=== PATIENT | female | born 1965 | race Caucasian/White ===

== ENCOUNTER 2020-10-30 17:27 | Outpatient (CLI) | payer OTHER, SELFPAY ==
--- NOTE | ~2020-10-30 | MM_ITS ---
EXAMINATION: MM screening cedric BI w megan HISTORY: Screening mammogram TECHNIQUE: Craniocaudal and mediolateral oblique 3-D tomosynthesis images were obtained and synthetic 2-D images were generated. CAD analysis was submitted and interpreted. COMPARISON: 04/10/2019, 02/07/2018, 12/30/2016 bilateral digital screening mammogram examinations BREAST PARENCHYMAL COMPOSITION: There are scattered areas of fibroglandular density. FINDINGS: Stable mild fibroglandular asymmetry. There is no evidence of suspicious mass, calcificatio n, or architectural distortion to suggest malignancy in either breast. There has been no suspicious i nterval change. IMPRESSION: 1. No mammographic evidence of malignancy. 2. Recommend routine screening mammography in one year. BI-RADS Category 2: Benign finding(s). Reviewed, dictated and finalized at location A. 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
== END 2020-10-30 17:28 | disposition home or self-care (01) ==
LOC: ANHIMG 17:29
PROVIDERS: PCP Family Medicine; Visit Provider Obstetrics & Gynecology
DX: Z12.31 Encounter for screening mammogram for malignant neoplasm of breast (principal)
CPT/HCPCS: 77063; 77067

== ENCOUNTER → 2021-06-04 05:43 | Outpatient (CLI) | payer OTHER, SELFPAY ==
[2021-06-04 19:18] LABS: SARS-CoV-2 RNA PCR Negative
== END ==
PROVIDERS: PCP Family Medicine; Visit Provider Family Medicine
DX: J02.9 Acute pharyngitis, unspecified (principal); J34.89 Other specified disorders of nose and nasal sinuses; R07.89 Other chest pain; R11.0 Nausea; R19.7 Diarrhea, unspecified; R51.9 Headache, unspecified; R53.83 Other fatigue; Z20.822 Contact with and (suspected) exposure to COVID-19
CPT/HCPCS: C9803; U0003; U0005

== ENCOUNTER 2021-12-02 08:02 | Outpatient (CLI) | payer OTHER, SELFPAY ==
--- NOTE | ~2021-12-02 | MM_ITS ---
EXAMINATION: MM screening contra [facility] BI w megan HISTORY: Screening mammogram TECHNIQUE: Craniocaudal and mediolateral oblique 3-D tomosynthesis images were obtained and synthetic 2-D images were generated. CAD analysis was submitted and interpreted. COMPARISON: Prior mammograms dating back to 12/30/2014 BREAST PARENCHYMAL COMPOSITION: There are scattered areas of fibroglandular density. FINDINGS: There is no evidence of suspicious mass, calcification, or architectural distortion to sugg est malignancy in either breast. There has been no suspicious interval change. IMPRESSION: 1. No mammographic evidence of malignancy. 2. Recommend routine screening mammography in one year. BI-RADS Category 2: Benign finding(s). Reviewed, dictated and finalized at location A. 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
== END 2021-12-02 08:03 | disposition home or self-care (01) ==
LOC: ANHIMG 08:03
PROVIDERS: PCP Family Medicine; Visit Provider Obstetrics & Gynecology
DX: Z12.31 Encounter for screening mammogram for malignant neoplasm of breast (principal)
CPT/HCPCS: 77063; 77067

== ENCOUNTER → 2022-07-30 17:24 | Outpatient (CLI) | payer OTHER, SELFPAY ==
--- NOTE | ~2022-07-30 | XR_ITS ---
EXAMINATION: XR_[id number]_CR DATE: 07/30/2022 17:42 INDICATION: Neck pain. TECHNIQUE: 4 views of cervical spine including standing views were obtained. COMPARISON: None. FINDINGS: There is 2 mm retrolisthesis of C5 on C6. Vertebral body heights are normal. There is moder ately decreased disc height at C5-C6. At C5-C6, there is severe bilateral uncovertebral joint osteoar thritis. There is multilevel mild facet joint osteoarthritis. There is mild central canal stenosis at C5-C6. No prevertebral soft tissue swelling. IMPRESSION: 1. Moderate spondylosis at C5-C6 and mild spondylosis at other levels. Reviewed, dictated and finalized at location A.
== END ==
PROVIDERS: PCP Chiropractor; Visit Provider Chiropractor
DX: M47.892 Other spondylosis, cervical region (principal)
CPT/HCPCS: 72040

== ENCOUNTER 2023-02-23 08:20 | Outpatient (CLI) | payer OTHER, SELFPAY ==
--- NOTE | ~2023-02-23 | MM_ITS ---
EXAMINATION: MM screening [facility] BI w megan HISTORY: Screening mammogram TECHNIQUE: Craniocaudal and mediolateral oblique 3-D tomosynthesis images were obtained and synthetic 2-D images were generated. CAD analysis was submitted and interpreted. COMPARISON: 12/02/2021, 10/30/2020, 04/20/2019 BREAST PARENCHYMAL COMPOSITION: There are scattered areas of fibroglandular density. FINDINGS: No suspicious mass, calcification, or architectural distortion are identified in either sunil ast to suggest malignancy. There has been no suspicious interval change. IMPRESSION: 1. No mammographic evidence of malignancy. 2. Recommend routine screening mammography in one year. BI-RADS Category 1: Negative Reviewed, dictated and finalized at location A.
== END 2023-02-23 08:21 | disposition home or self-care (01) ==
LOC: ANHIMG 08:23
PROVIDERS: PCP Emergency Medicine; Visit Provider Obstetrics & Gynecology
DX: Z12.31 Encounter for screening mammogram for malignant neoplasm of breast (principal)
CPT/HCPCS: 77063; 77067

== ENCOUNTER 2023-08-18 03:05 | Day surgery (SDC) | payer BC, SELFPAY ==
[2023-08-08 14:36] VITALS: BMI 31.0
--- NOTE | 2023-08-16 10:51 | SUR.PREOP ---
Patient called regarding upcoming procedure. Reviewed preop instructions, appointment times, and procedure prep.
--- NOTE | 2023-08-17 16:44 | PM.HPGS ---
History of Present Illness History of Present Illness Consent: Risks, benefits, and alternatives have been discussed and questions answered. Patient agrees to proceed with procedure. Chief complaint: Hx of colon polyps Narrative: Carmelita Grimm is a 58 year old female referred for colon cancer screening. She has history of polyps. Review of Systems Review of Systems: All systems reviewed & are unremarkable except as noted in HPI and below PMFSH Past Medical History Medical History BMI 33.0-33.9,adult Depression Diabetes Eczema High cholesterol Restless leg syndrome Screening mammogram, encounter for Trigger finger, right middle finger Surgical History Surgical History H/O section H/O tubal ligation History of hysterectomy, supracervical (03/15/03) History of lobectomy of lung R lower lobectomy due to collapsed lung - date unknown Hx of cholecystectomy Family History Family History Father Family history of obesity Family history of migraine headaches Hypertension Cerebrovascular accident, Onset Age: 74 Family history of diabetes mellitus in first degree relative Family history of congestive heart failure Diabetes mellitus, Onset Age: 76 Family history of cardiovascular disease, Onset Age: 76 Family history of coronary artery disease, Onset Age: 76 Mother Depression Family history of osteoarthritis Patient's mother is in good health Family history of diabetes mellitus in first degree relative Family history of irritable bowel syndrome Diabetes mellitus Family history of lymphoma Sibling Patient's sister is in good health Patient's brother is in good health Other Asthma Family history of attention deficit hyperactivity disorder (ADHD) Social History Social History Smoking status: Never smoker Second hand tobacco smoke exposure: No Alcohol intake: never Substance use: current Substance use type: does not use Last use: Gummies 3 times within last month. 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 Gender identity (if verbalized by the patient): Female Sexual Orientation (if Verbalized by the Patient): Straight or Heterosexual Meds Home Medications and Allergies Home Medications Medication Instructions Recorded Confirmed Type albuterol sulfate 90 mcg/actuation 2 puff inhalation Q4H PRN 04/25/20 08/18/23 Rx aerosol inhaler (ProAir HFA) shortness of breath or wheezing #8.5 grams estradiol 10 mcg vaginal tablet 10 mcg vaginal 2XW 90 days #26 tabs 01/11/23 08/18/23 Rx bupropion HCl 150 mg 24 hr tablet, 150 mg PO QAM 05/10/23 08/18/23 History extended release (Wellbutrin XL) duloxetine 30 mg capsule,delayed 30 mg PO DAILY 05/10/23 08/18/23 History release atorvastatin 20 mg tablet 20 mg PO DAILY #90 tabs 06/07/23 08/18/23 Rx omeprazole 20 mg capsule,delayed See Rx Instructions .Route 06/07/23 08/18/23 Rx release .COMPLEX #90 caps clotrimazole-betamethasone 1 1 applic topical BID PRN Rash 08/08/23 08/18/23 History %-0.05 % topical cream metformin 500 mg tablet,extended 500 mg PO DAILY #90 tabs 08/12/23 08/18/23 Rx release 24 hr Allergies Allergy/AdvReac Type Severity Reaction Status Date / Time codeine Allergy Severe hives Verified 08/18/23 06:17 Penicillins Allergy Severe
[2023-08-18 06:10] VITALS: BP 147/80; PULSE 74; RESP 16; TEMP 36.4; O2SAT 98; BMI 32.6
[2023-08-18] MEDS: LACTATED RINGERS 1,000 ML 150 ML IV CONT (06:31)
[2023-08-18 06:38] LABS: Glucose Point of Care 126 mg/dl (65-105)
--- NOTE | 2023-08-18 07:13 | WPDANESEPPF ---
Anes - Initial Pre Proc Eval Procedure: Operation Date: 08/18/23 07:30 Proposed Procedures p Screening Colonoscopy - Praneeth Delgado MD Date/Time: 08/18/23 07:13 Surgeon: Praneeth Delgado MD Pre Op Diagnosis: Hx of colon polyps Patient Data Age: 58 Gender: F Height: 1.6 m Weight: 83.6 kg Last Vital Signs Temp 97.5 F L 08/18/23 06:10 Pulse 74 08/18/23 06:10 Resp 16 08/18/23 06:10 BP 147/80 H 08/18/23 06:10 Pulse Ox 98 08/18/23 06:10 O2 Del Method Room Air 08/18/23 06:10 Allergies Allergy/AdvReac Type Severity Reaction Status Date / Time codeine Allergy Severe hives Verified 08/18/23 06:17 Penicillins Allergy Severe hives Verified 08/18/23 06:17 Sulfa (Sulfonamide Allergy Severe HIVES FROM Verified 08/18/23 06:17 Antibiotics) PRESERVATIVE sulfamethoxazole Allergy Severe HIVES FROM Verified 08/18/23 06:17 PRESERVATIVE trimethoprim Allergy Severe HIVES FROM Verified 08/18/23 06:17 PRESERVATIVE Benzoate Analogues Allergy Unknown POTASSIUM Verified 08/18/23 06:17 OR SODIUM BENZOATE Cephalosporins Allergy Unknown CECLOR, Verified 08/18/23 06:17 CEPHALEXIN-HIVES FROM PRESERVATIVE rofecoxib Allergy Unknown HIVES FROM Verified 08/18/23 06:17 PRESERVATIVE sodium benzoate Allergy Unknown IN Verified 08/18/23 06:17 SUSPENSION/LIQUIDS-HIVES FROM PRESERVATIVE SALICYLATES Allergy Unknown HIVES FROM Uncoded 08/18/23 06:17 PRESERVATIVE DIET WHITE SODA AdvReac Unknown Unknown Uncoded 08/18/23 06:17 Home Medications Medication Instructions Recorded Confirmed Type albuterol sulfate 90 mcg/actuation 2 puff inhalation Q4H PRN 04/25/20 08/18/23 Rx aerosol inhaler (ProAir HFA) shortness of breath or wheezing #8.5 grams estradiol 10 mcg vaginal tablet 10 mcg vaginal 2XW 90 days #26 tabs 01/11/23 08/18/23 Rx bupropion HCl 150 mg 24 hr tablet, 150 mg PO QAM 05/10/23 08/18/23 History extended release (Wellbutrin XL) duloxetine 30 mg capsule,delayed 30 mg PO DAILY 05/10/23 08/18/23 History release atorvastatin 20 mg tablet 20 mg PO DAILY #90 tabs 06/07/23 08/18/23 Rx omeprazole 20 mg capsule,delayed See Rx Instructions .Route 06/07/23 08/18/23 Rx release .COMPLEX #90 caps clotrimazole-betamethasone 1 1 applic topical BID PRN Rash 08/08/23 08/18/23 History %-0.05 % topical cream metformin 500 mg tablet,extended 500 mg PO DAILY #90 tabs 08/12/23 08/18/23 Rx release 24 hr Laboratory Tests 08/18/23 06:34 POC Capillary Glucose 126 H mg/dl (65-105) Patient hx anesthesia problems: none Family hx anesthesia problems: none Results Review: All pre-operative results and documents have been reviewed as part of the pre-operative evaluation. [facility] Past Medical History Medical History BMI 33.0-33.9,adult Depression Diabetes Eczema High cholesterol Restless leg syndrome Screening mammogram, encounter for Trigger finger, right middle finger Surgical History Surgical History H/O section H/O tubal ligation History of hysterectomy, supracervical (03/15/03) History of lobectomy of lung R lower lobectomy due to collapsed lung - date unknown Hx of cholecystectomy Family History Family History Father Family history of obesity Family history of migraine headaches Hypertension Cerebrovascular accident, Onset Age: 74 Family history of diabetes mellitus in first degree relative Family history of congestive heart failure Diabetes mellitus, Onset Age: 76 Family history of cardiovascular disease, Onset Age: 76 Family history of coronary artery disease, Onset Age: 76 Mother Depression Family history of osteoarthritis Patient's mother is in good health Family history of diabetes mellitus in first degree rela
[2023-08-18 07:40] VITALS: BP 102/64; PULSE 67; RESP 22; O2SAT 97
[2023-08-18 07:50] VITALS: BP 114/73; PULSE 66; RESP 20; O2SAT 99
[2023-08-18 08:00] VITALS: BP 123/81; PULSE 74; RESP 20; O2SAT 99
== END 2023-08-18 08:07 | disposition home or self-care (01) ==
PROVIDERS: PCP Emergency Medicine; Visit Provider Internal Medicine Gastroenterology
PROC: 0DJD8ZZ Inspection of Lower Intestinal Tract, Via Natural or Artificial Opening Endoscopic (ICD-10-PCS; CPT 45378; principal; 2023-08-18 07:30)
DX: Z12.11 Encounter for screening for malignant neoplasm of colon (principal); F32.A Depression, unspecified; E11.9 Type 2 diabetes mellitus without complications; E78.00 Pure hypercholesterolemia, unspecified; G25.81 Restless legs syndrome; Z90.49 Acquired absence of other specified parts of digestive tract; Z90.2 Acquired absence of lung [part of]; Z79.51 Long term (current) use of inhaled steroids; Z79.84 Long term (current) use of oral hypoglycemic drugs; Z86.010 Personal history of colon polyps; Z82.49 Family history of ischemic heart disease and other diseases of the circulatory system; E66.9 Obesity, unspecified; Z68.32 Body mass index [BMI] 32.0-32.9, adult
CPT/HCPCS: G0105; 82948; J2704; J7120

== ENCOUNTER → 2023-09-21 08:11 | Outpatient (CLI) | payer BC, SELFPAY ==
--- NOTE | ~2023-09-21 | MMUS_ITS ---
EXAMINATION: MM diagnostic cedric LT w megan, US breast LT limited HISTORY: Upper inner quadrant left breast lump and ridge along the upper inner and outer quadrants TECHNIQUE: ML, MLO and CC 3-D tomosynthesis images of the left breast were performed and synthetic 2- D images were generated. CAD analysis was submitted and interpreted. High resolution targeted left br east ultrasound examination. If clinical complaint was performed. COMPARISON: 02/19/2023, 12/02/2021, 10/30/2020 bilateral screening mammogram examinations BREAST PARENCHYMAL COMPOSITION: There are scattered areas of fibroglandular density. FINDINGS: MAMMOGRAPHIC FINDINGS: No suspicious mass, architectural distortion, malignant calcification, skin thickening or retraction or significant new or developing density of the left breast is detected. Endotracheal, a skin marker placed over the area of reported lump in the upper inner quadrant of the left breast shows predominantly underlying adipose tissue. ULTRASOUND: 10:00 10 cm from nipple: No suspicious mass or shadowing, cyst or other significant abnormality is no ashley at the area of clinical complaint Superior left breast, 12:00 area: No suspicious mass or shadowing or cyst or other significant sonogr aphic abnormality is detected along the area where the patient complains of a ridge. IMPRESSION: 1. No mammographic evidence of malignancy 2. Routine annual mammographic screening is recommended BI-RADS Category 1: Negative Reviewed, dictated and finalized at location A. FILER IMPRESSION: 1. No mammographic evidence of malignancy 2. Routine annual mammographic screening is recommended BI-RADS Category 1: Negative
== END ==
PROVIDERS: PCP Obstetrics & Gynecology; Visit Provider Emergency Medicine
DX: N63.20 Unspecified lump in the left breast, unspecified quadrant (principal)
CPT/HCPCS: 76642; 77061; 77065; G0279

== ENCOUNTER 2023-09-30 03:58 | Day surgery (SDC) | payer BC, SELFPAY ==
[2023-09-08 14:18] VITALS: BMI 31.0
--- NOTE | 2023-09-28 09:30 | SUR.PREOP ---
Patient called regarding upcoming procedure. Message left on patient's voicemail regarding appointment times.
--- NOTE | 2023-09-29 18:06 | PM.HPGS ---
History of Present Illness History of Present Illness Consent: Risks, benefits, and alternatives have been discussed and questions answered. Patient agrees to proceed with procedure. Chief complaint: Malagon's Esophagus without dysplasia Narrative: Carmelita Girmm is a 58 year old female With a history of Malagon's esophagus. Review of Systems Review of Systems: All systems reviewed & are unremarkable except as noted in HPI and below PMFSH Past Medical History Medical History BMI 33.0-33.9,adult Depression Diabetes Eczema High cholesterol Restless leg syndrome Screening mammogram, encounter for Trigger finger, right middle finger Surgical History Surgical History H/O section H/O tubal ligation History of hysterectomy, supracervical (03/15/03) History of lobectomy of lung R lower lobectomy due to collapsed lung - date unknown Hx of cholecystectomy Family History Family History Father Family history of obesity Family history of migraine headaches Hypertension Cerebrovascular accident, Onset Age: 74 Family history of diabetes mellitus in first degree relative Family history of congestive heart failure Diabetes mellitus, Onset Age: 76 Family history of cardiovascular disease, Onset Age: 76 Family history of coronary artery disease, Onset Age: 76 Mother Depression Family history of osteoarthritis Patient's mother is in good health Family history of diabetes mellitus in first degree relative Family history of irritable bowel syndrome Diabetes mellitus Family history of lymphoma Sibling Patient's sister is in good health Patient's brother is in good health Other Asthma Family history of attention deficit hyperactivity disorder (ADHD) Social History Social History Smoking status: Never smoker Second hand tobacco smoke exposure: No Alcohol intake: never Substance use: current Substance use type: does not use Last use: Gummies 3 times within last month. 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 Gender identity (if verbalized by the patient): Female Sexual Orientation (if Verbalized by the Patient): Straight or Heterosexual Meds Home Medications and Allergies Home Medications Medication Instructions Recorded Confirmed Type albuterol sulfate 90 mcg/actuation 2 puff inhalation Q4H PRN 04/25/20 09/08/23 Rx aerosol inhaler (ProAir HFA) shortness of breath or wheezing #8.5 grams bupropion HCl 150 mg 24 hr tablet, 150 mg PO QAM 05/10/23 09/30/23 History extended release (Wellbutrin XL) duloxetine 30 mg capsule,delayed 30 mg PO DAILY 05/10/23 09/30/23 History release atorvastatin 20 mg tablet 20 mg PO DAILY #90 tabs 06/07/23 09/08/23 Rx omeprazole 20 mg capsule,delayed See Rx Instructions .Route 06/07/23 09/30/23 Rx release .COMPLEX #90 caps clotrimazole-betamethasone 1 1 applic topical BID PRN Rash 08/08/23 09/08/23 History %-0.05 % topical cream metformin 500 mg tablet,extended 500 mg PO DAILY #90 tabs 08/12/23 09/08/23 Rx release 24 hr estradiol 10 mcg vaginal tablet 10 mcg vaginal 2XW 90 days #26 tabs 09/28/23 Rx Allergies Allergy/AdvReac Type Severity Reaction Status Date / Time codeine Allergy Severe hives Verified 09/30/23 10:23 Penicillins Allergy Severe hives Verified
[2023-09-30 10:25] VITALS: BP 148/75; PULSE 90; RESP 20; TEMP 36.6; O2SAT 98
[2023-09-30] MEDS: LACTATED RINGERS 1,000 ML 150 ML IV CONT (10:38)
[2023-09-30 10:41] LABS: Glucose Point of Care 121 mg/dl (65-105)
--- NOTE | 2023-09-30 10:55 | WPDANESEPPF ---
Anes - Initial Pre Proc Eval Procedure: Operation Date: 09/30/23 11:30 Proposed Procedures p Esophagogastroduodenoscopy - Praneeth Delgado MD Date/Time: 09/30/23 10:55 Surgeon: Praneeth Delgado MD Pre Op Diagnosis: Malagon's Esophagus without dysplasia Patient Data Age: 58 Gender: F Height: 1.6 m Weight: 82 kg Last Vital Signs Temp 97.8 F 09/30/23 10:25 Pulse 90 09/30/23 10:25 Resp 20 09/30/23 10:25 BP 148/75 H 09/30/23 10:25 Pulse Ox 98 09/30/23 10:25 O2 Del Method Room Air 09/30/23 10:25 Allergies Allergy/AdvReac Type Severity Reaction Status Date / Time codeine Allergy Severe hives Verified 09/30/23 10:23 Penicillins Allergy Severe hives Verified 09/30/23 10:23 Sulfa (Sulfonamide Allergy Severe HIVES FROM Verified 09/30/23 10:23 Antibiotics) PRESERVATIVE sulfamethoxazole Allergy Severe HIVES FROM Verified 09/30/23 10:23 PRESERVATIVE trimethoprim Allergy Severe HIVES FROM Verified 09/30/23 10:23 PRESERVATIVE Benzoate Analogues Allergy Unknown POTASSIUM Verified 09/30/23 10:23 OR SODIUM BENZOATE Cephalosporins Allergy Unknown CECLOR, Verified 09/30/23 10:23 CEPHALEXIN-HIVES FROM PRESERVATIVE rofecoxib Allergy Unknown HIVES FROM Verified 09/30/23 10:23 PRESERVATIVE sodium benzoate Allergy Unknown IN Verified 09/30/23 10:23 SUSPENSION/LIQUIDS-HIVES FROM PRESERVATIVE SALICYLATES Allergy Unknown HIVES FROM Uncoded 09/30/23 10:23 PRESERVATIVE DIET WHITE SODA AdvReac Unknown Unknown Uncoded 09/30/23 10:23 Home Medications Medication Instructions Recorded Confirmed Type albuterol sulfate 90 mcg/actuation 2 puff inhalation Q4H PRN 04/25/20 09/08/23 Rx aerosol inhaler (ProAir HFA) shortness of breath or wheezing #8.5 grams bupropion HCl 150 mg 24 hr tablet, 150 mg PO QAM 05/10/23 09/30/23 History extended release (Wellbutrin XL) duloxetine 30 mg capsule,delayed 30 mg PO DAILY 05/10/23 09/30/23 History release atorvastatin 20 mg tablet 20 mg PO DAILY #90 tabs 06/07/23 09/08/23 Rx omeprazole 20 mg capsule,delayed See Rx Instructions .Route 06/07/23 09/30/23 Rx release .COMPLEX #90 caps clotrimazole-betamethasone 1 1 applic topical BID PRN Rash 08/08/23 09/08/23 History %-0.05 % topical cream metformin 500 mg tablet,extended 500 mg PO DAILY #90 tabs 08/12/23 09/08/23 Rx release 24 hr estradiol 10 mcg vaginal tablet 10 mcg vaginal 2XW 90 days #26 tabs 09/28/23 Rx Laboratory Tests 09/30/23 10:32 POC Capillary Glucose 121 H mg/dl (65-105) Patient hx anesthesia problems: post op nausea/vomiting Family hx anesthesia problems: none Results Review: All pre-operative results and documents have been reviewed as part of the pre-operative evaluation. [facility] Past Medical History Medical History BMI 33.0-33.9,adult Depression Diabetes Eczema High cholesterol Restless leg syndrome Screening mammogram, encounter for Trigger finger, right middle finger Surgical History Surgical History H/O section H/O tubal ligation History of hysterectomy, supracervical (03/15/03) History of lobectomy of lung R lower lobectomy due to collapsed lung - date unknown Hx of cholecystectomy Family History Family History Father Family history of obesity Family history of migraine headaches Hypertension Cerebrovascular accident, Onset Age: 74 Family history of diabetes mellitus in first degree relative Family history of congestive heart failure Diabetes mellitus, Onset Age: 76 Family history of cardiovascular disease, Onset Age: 76 Family history of coronary artery disease, Onset Age: 76 Mother Depression Family history of osteoarthritis Patient's mother is in good health Family history of diabetes pamelait
[2023-09-30 11:29] VITALS: BP 121/77; PULSE 67; RESP 23; O2SAT 96
[2023-09-30 11:39] VITALS: BP 123/78; PULSE 69; RESP 23; O2SAT 97
[2023-09-30 11:49] VITALS: BP 131/81; PULSE 69; RESP 24; O2SAT 97
== END 2023-09-30 11:50 | disposition home or self-care (01) ==
PROVIDERS: PCP Emergency Medicine; Visit Provider Internal Medicine Gastroenterology
PROC: 0DJ08ZZ Inspection of Upper Intestinal Tract, Via Natural or Artificial Opening Endoscopic (ICD-10-PCS; CPT 43235; principal; 2023-09-30 11:30)
DX: K22.70 Barrett's esophagus without dysplasia (principal); K21.00 Gastro-esophageal reflux disease with esophagitis, without bleeding; K44.9 Diaphragmatic hernia without obstruction or gangrene; F32.A Depression, unspecified; E11.9 Type 2 diabetes mellitus without complications; E78.00 Pure hypercholesterolemia, unspecified; G25.81 Restless legs syndrome; Z79.51 Long term (current) use of inhaled steroids; Z79.84 Long term (current) use of oral hypoglycemic drugs; Z90.49 Acquired absence of other specified parts of digestive tract; Z82.49 Family history of ischemic heart disease and other diseases of the circulatory system
CPT/HCPCS: 43239; 82948; 88305; J2704; J7120

== ENCOUNTER 2025-04-16 15:12 | Outpatient (CLI) | payer BC, SELFPAY ==
--- NOTE | ~2025-04-16 | MM_ITS ---
EXAMINATION: MM screening cedric BI w megan HISTORY: Screening TECHNIQUE: Craniocaudal and mediolateral oblique 3-D tomosynthesis images were obtained and synthetic 2-D images were generated. CAD analysis was submitted and interpreted. COMPARISON: Comparison to multiple prior studies sequentially, with oldest reviewed study dated 05/2018. BREAST PARENCHYMAL COMPOSITION: Not dense: There are scattered areas of fibroglandular density. FINDINGS: There is no evidence of suspicious mass, calcification, or architectural distortion to sugg est malignancy in either breast. There has been no suspicious interval change. IMPRESSION: 1. No mammographic evidence of malignancy. 2. Recommend routine screening mammography in one year. BI-RADS Category 1: Negative Reviewed, dictated and finalized at location B.
--- OUTSIDE RECORDS SUMMARY | 2025-04-16 15:35 | XMS_ITS | Clinical Summary ---
Author Organization [facility] Address [address] [place] [phone] Phone Care Team Providers Care City Route Driver Name Role Phone Luis A Bush MD Primary Care Provider Allergies Active Allergy Reactions Criticality Noted Date Comments Cefaclor Unknown 04/14/2012 Codeine Unknown 04/14/2012 Sodium Benzoate Unknown 04/14/2012 Soy Protein Hives High 04/18/2012 Sulfa (Sulfonamide Antibiotics) Unknown 04/02 Medications CLONAZEPAM (KLONOPIN ORAL) Take by mouth. Active VENLAFAXINE HCL (EFFEXOR ORAL) Take by mouth. Active FAMOTIDINE (PEPCID ORAL) Take by mouth. Active ESTROGENS, CONJUGATED/MEPRO BAM (ESTROGENS CONJ-MEPROBAMATE ORAL) Take by mouth. 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 Gender Identity Not on file Sexual Orientation Not on file Occupation Industry Job Start Date Job End Date Not on file Not on file Not on file Not on file Last Filed Vital Signs Vital Sign Reading Time Taken Comments Blood Pressure 100/73 04/18/2012 10:09 AM CDT Pulse 72 04/18/2012 10:09 AM CDT Temperature 36.8 C (98.2 F) 04/18/2012 9:42 AM CDT Respiratory Rate 18 04/18/2012 10:09 AM CDT Oxygen Saturation 100% 04/18/2012 10:09 AM CDT Inhaled Oxygen Concentration - - Weight 79.8 kg (176 lb) 04/18/2012 8:55 AM CDT Height 160 cm (5' 3) 04/18/2012 8:55 AM CDT Body Mass Index 31.18 04/18/2012 8:55 AM CDT Plan of Treatment Health Maintenance Due Date Last Done Comments DTAP/TDAP/TD VACCINES (1 - Tdap) 1982 HPV/Cotest (21-29) 1984 CERVICAL CANCER SCREENING 1993 HPV/Cotest (30-65) 1993 PAP SMEAR 1993 BREAST CANCER SCREENING 2003 FIT-DNA Q 3 years 2008 FIT/FOBT Q 1 year 2008 Flex Sig/CT Colonography Q 5 years 2008 ZOSTER VACCINE (1 of 2) 2013 COLORECTAL SCREENING 04/18/2022 04/18/2012, 04/18/20 12 Colorectal Cancer Screening 04/18/2022 INFLUENZA VACCINE (#1) 2025 RSV VACCINE (60+ or ) (1 - 1-dose 75+ series) 2038 Advance Directives For more information, please contact: [phone] * Full Code (Latest Code Status on File) Date Activated Date Inactivated Comments 04/18/2012 8:54 AM 04/18/2012 12:54 PM Care Teams City Route Driver Relationship Specialty Start Date End Date Luis A Bush MD [address] [place] [phone] PCP - General Family Practice 04/12/12
--- OUTSIDE RECORDS SUMMARY | 2025-04-16 15:35 | XMS_ITS | Patient Health Record ---
Author Organization [facility] Address [address] [place] [address] Care Team Providers Care Nitrator Operator Name Role Phone SAIRA ESPINOZA MD Primary Care Provider Unav Sary Yang Unavailable [phone] Allergies Allergen (clinical drug ingredient) Drug/Non Drug Allergy documented on EMR Reaction Allergy Type Onset Date Status Substance with sulfonamide structure and antibacterial mechanism of action (substance) SULFA (SULFONAMIDE ANTIBIOTICS) (uncoded) Unknown Allergy 10/05/2023 Active Sodium Benzoate Unknown Drug Allergy 10/05/2023 Active trimethoprim Trimethoprim Unknown Drug Allergy 10/05/2023 Active Soybean Unknown Drug Allergy 10/05/2023 Active codeine Codeine Unknown Drug Allergy 10/05/2023 Active Substance with penicillin structure and antibacterial mechanism of action (substance) Penicillins Unknown Drug Allergy 10/05/2023 Active rofecoxib Rofecoxib Unknown Drug Allergy 10/05/2023 Active salicylate (FN) Salicylates Unknown Drug Allergy Active Reason For Referral No Information Medications Medication SIG (Take, Route, Frequency, Duration) Notes Start Date End Date Status buPROPion HCl ER (XL) 150 MG 1 tablet in the morning Oral Once a day; Duration: 90 days Active DULoxetine HCl 30 MG TAKE 1 CAPSULE BY M OUTH DAILY; Duration: 90 Active traZODone HCl 100 MG 1 tablet at bedtime Oral Once a day; Duration: 90 days Active DULoxetine HCl 30 MG 1 capsule Oral Once a day; Duration: 90 days Active Omeprazole 20 MG Oral 10/05/2023 Ac tive buPROPion HCl ER (XL) 150 MG 1 tablet in the morning Oral Once a day; Duration: 90 days Active Atorvastatin Calcium 20 MG Oral 10/05/2023 Active Social History Tobacco Use: Social History Observation Description Date Details (start date - stop date) Never Smoker NA - NA Sex Assigned At : Social History Observation Description Sex Assigned At Female Tobacco Control (Standard) Question Answer Notes Tobacco use: Nonsmoker AUDIT-C (Standard) Question Answer Notes Did you have a drink containing alcohol in the p ast year? No Problems Problem Type SNOMED Code ICD Code Onset Dates Problem Status W/U Status Risk Notes Problem Major depressive disorder, recurrent severe without psychotic features (F33.2) Active confirmed Problem Generalized anxiety disorder (25639566) Generalized anxiety disorder (F41.1) Active confirmed Problem Primary insomnia (7181261) Primary insomnia (F51.01) Active confirmed Vital Signs Heart Rate 72 /min 04/11/2025 Height-cm 160.02 cm 04/11/2025 Blood pressure diastolic 85 mm Hg 04/11/2025 Weight-kg 71.67 kg 04/11/2025 Height 63.00 in 04/11/2025 Blood pressure systolic 128 mm Hg 04/11/2025 Weight 158 lbs 04/11/2025 BMI 27.99 kg/m2 04/11/2025 Encounters Encounter Location Date Provider Diagnosis [facility] [employer] [facility] [address] [facility] [address] [place] [address] 10/09/2024 Sary Roberts Major depressive disorder, recurrent severe without psychotic features F33.2 ; Primary insomnia F51.01 and Generalized anxiety disorder F41.1 [employer] [facility] [address] [facility] [address] [facility] [address] [place] [address] 04/11/2025 Sary Roberts Primary insomnia F51.01 ; Generalized anxiety disorder F41.1 ; Dietary counseling and surveillance Z71.3 and Major depressive disorder, recurrent severe without psychotic features F33.2 [employer] [facility] [address] [facility] [address] [place] [address] 04/30/2024 Sary Roberts Major depressive disorder, recurrent severe without psychotic features F33.2 Assessments Encounter Date Diagnosis (ICD Code) Assessment Notes Treatment Notes Treatment Clinical Notes Section Notes 04/30/2024 Major depressive disorder, recurrent severe without psychotic features (ICD-10 - F33.2) 10/09/2024 Major depressive disorder, recurrent severe without psychotic features (ICD-10 - F33.2) Common side effects of Wellbutrin include insomnia, increased anxiety, nausea, dizziness, decreased appetite, restlessness, irritability and anger, increased sweating or hot flashes, tremors, joint pain. Wellbutrin is not recommended in individuals with a history of seizures. If side effects persist, please contact the office. 04/11/2025 Primary insomnia (ICD-10 - F51.01) 04/11/2025 Generalized anxiety disorder (ICD-10 - F41.1) SSRI/SNRI side effects discussed including but not limited to, gastric upset, nausea, vomiting, diarrhea and/or constipation, weight changes, sexual side effects including loss of libido, increased suicidal thoughts/behavio rs in children and young adults, and serotonin syndrome. 10/09/2024 Primary insomnia (ICD-10 - F51.01) 04/11/2025 Major depressive disorder, recurrent severe without psychotic features (ICD-10 - F33.2) Common side effects of Wellbutrin include insomnia, increased anxiety, nausea, dizziness, decreased appetite, restlessness, irritability and anger, increased sweating or hot flashes, tremors, joint pain. Wellbutrin is not recommended in individuals with a history of seizures. If side effects persist, please contact the office. 10/09/2024 Generalized anxiety disorder (ICD-10 - F41.1) SSRI/SNRI side effects discussed including but not limited to, gastric upset, nausea, vomiting, diarrhea and/or constipation, weight changes, sexual side effects including loss of libido, increased suicidal thoughts/behavio rs in children and young adults, and serotonin syndrome. 04/11/2025 Dietary counseling and surveillance (ICD-10 - Z71.3) 10/09/2024 Other Stable, continue current medications. Refills sent in today. Patient educated on all medications including potential benefits, side effects, risks. Educated on proper dosing schedule and importance of compliance. -Assessment and treatment plan reviewed with patient. -Compliance with treatment plan importance discussed. -Discussed the risks/benefits of this medication -Discussed medication side effects. -Contact office if symptoms worsen. -Discussed that it can take up to 6-8 weeks to see full therapeutic effects of psychotropic medications. -Crisis prevention hotline 988. 04/11/2025 Other Stable on current medication regimen, continue at current doses. -Refills sent in today -No concerns today Patient educated on all medications including potential benefits, side effects, risks. Educated on proper dosing schedule and importance of compliance. -Assessment and treatment plan reviewed with patient. -Compliance with treatment plan importance discussed. -Discussed the risks/benefits of this medication -Discussed medication side effects. -Contact office if symptoms worsen. -Discussed that it can take up to 6-8 weeks to see full therapeutic effects of psychotropic medications. -Crisis prevention hotline 088. Plan Of Treatment Next Appt Details Provider Name:Sary Cohen camilo, 09/09/2025 08:30:00 AM, [address] [facility] [address] [facility] [address], [place], [address], Insurance Providers Payer Name Payer Address Payer Phone Subscriber Number Group Number Insured Name Patient Relationship to Insured Coverage Start Date Coverage End Date Bcbs-Pr Ppo [address] [place] [address] [id number] EFREN EDWARDS Self - patient is the insured Medical (General) History Medical History History ICD Code Problems: Generalized anxiety disorder Primary insomnia Severe recurrent major depression withou t psychotic features , Surgical History Surgery Date(Month/Year) Hysterectomy (07330) 10/03/2002 Cataract surgery (27028) 10/03/2009 Removal of gallbladder (85876) 0 Reconstructive surgery 04/02/1980
--- OUTSIDE RECORDS SUMMARY | 2025-04-16 15:35 | XMS_ITS | Continuity of Care Document ---
Author Organization [facility] Address [address] [facility] [address] [place] [address] Phone Care Team Providers Care Yarn Twister Name Role Phone Rajesh Estevez Unavailable Unavailable Procedures Procedure Date Post-op Follow-up Visit Post-op Follow-up Visit Remove Cataract, Insert Lens Post-op Follow-up Visit [facility] Post-op Follow-up Visit Remove Cataract, Insert Lens Office Consultation [facility] Advance Directives Directive Yes / No Effective Date File Name No Information Encounters Encounter Description Practice Location Reason(s) For Visit Diagnoses Date Provider Providers Copied on Encounter [facility], [address] [place] [address] [address], [place], [place], [id number], tel:[phone] [facility] No Information [address] Zenaida [address]. [address], [place], [address], [place]. tel:[phone] Referring Provider: Terell Chang OD F, [address] [facility] [address], [place], [address]. tel:[phone] [facility], [address] [place] [address] [address], [place], [place], [id number], tel:[phone] [facility] No Information 2-[address] 8 Doisy Edward. [address], [place], [place], [facility], . tel:[phone] Referring Provider: Terell Chang OD F, [address] [facility] [address], [place], [place], [facility]. tel:[phone] [facility], [address], [place], [place], [id number], [place] tel:[phone] [facility] No Information Jan-0 1200 8 Doisy Edward. [address], [place], [place], [facility], [place]. tel:[phone] Referring Provider: Terell Chang OD F, [address] [facility] [address], [place], [place], [facility]. tel:[phone] [facility], [address], [place], [place], [id number], tel:[phone] [facility] No Information 0 [address] Doisy Edward. [address], [place], [place], [facility], [place]. tel:[phone] Referring Provider: Terell Chang OD F, [address] [facility] [address], [place], [facility]. tel:[phone] [facility], [address], [place], [place], [id number], [place] tel:[phone] [facility] No Information [address] Doisy Edward. [address], [place], [facility], [place]. tel:[phone] Referring Provider: Terell Chang OD F, [address] [facility] [address], [place], [facility]. tel:[phone] [facility], [address], [place], [place], [id number], [place] tel:[phone] [facility] No Information 8 [facility] [address]. [address] [facility] , [address], [place], [address], . tel:[phone] Referring Provider: Terell Chang OD F, [address] [facility] [address], [place], [address]. tel:[phone] Office Consultation [facility], [address] [facility] [address], [place], [place], [id number], tel:[phone] [facility] No Information 8 [facility] [address]. [address] [facility] , [address], [place], [place], [facility], . tel:[phone] Referring Provider: Terell Chang OD F, [address] [facility] [address], [place], [address]. tel:[phone] Family History Family Member Type Diagnosis Age At Onset No Information Payers Payer name Insurance type Covered republican ID Authoriza tion(s) No Information Social History [...]
== END 2025-04-16 15:13 | disposition home or self-care (01) ==
LOC: ANHIMG 15:33
PROVIDERS: PCP Family Medicine; Visit Provider Obstetrics & Gynecology
DX: Z12.31 Encounter for screening mammogram for malignant neoplasm of breast (principal)
CPT/HCPCS: 77063; 77067

== ENCOUNTER 2025-07-24 15:47 | Outpatient (CLI) | payer BC, SELFPAY ==
--- OUTSIDE RECORDS SUMMARY | 2008-01-11 06:06 | XMS_ITS | Continuity of Care Document ---
Author Organization [facility] Address [address] [place] [address] Phone Care Team Providers Care Qa Test Analyst Name Role Phone Rajesh Estevez Unavailable Unavailable Procedures Procedure Date Post-op Follow-up Visit Post-op Follow-up Visit Remove Cataract, Insert Lens Post-op Follow-up Visit IOLMaster-Professional Post-op Follow-up Visit Remove Cataract, Insert Lens Office Consultation IOLMaster Advance Directives Directive Yes / No Effective Date File Name No Information Encounters Encounter Description Practice Location Reason(s) For Visit Diagnoses Date Provider Providers Copied on Encounter [facility], [address] [place] [address] [address], [place], [place], [id number], tel:[phone] [facility] No Information 0200 8 Zenaida Edhector. [address], [address], [place], [address], [place]. tel:[phone] Referring Provider: Terell Chang OD F, [address], [place], [address]. tel:[phone] [facility], [address] [place] [address] [address], [place], [place], [id number], tel:[phone] [facility] No Information 2-200 8 Doisy Edward. [address], [address], [place], [place], [facility], . tel:[phone] Referring Provider: Terell Chang OD F, [address], [place], [place], [facility]. tel:[phone] [facility], [address], [place], [place], [id number], [place] tel:[phone] [facility] No Information Jan-0 1200 8 Doisy Edward. [address], [address], [place], [place], [facility], [place]. tel:[phone] Referring Provider: Terell Chang OD F, [address], [place], [place], [facility]. tel:[phone] [facility], [address], [place], [place], [id number], tel:[phone] [facility] No Information 0 200 8 Doisy Edward. [address], [place], [facility], [place]. tel:[phone] Referring Provider: Terell Chang OD F, [address], [place], [facility]. tel:[phone] [facility], [address], [place], [place], [id number], [place] tel:[phone] [facility] No Information 200 8 Doisy Edward. [address], [place], [facility], [place]. tel:[phone] Referring Provider: Terell Chang OD F, [address], [place], [facility]. tel:[phone] [facility], [address], [place], [place], [id number], [place] tel:[phone] [facility] No Information 8 [facility] Edhector. [address] , [address], [place], [address], . tel:[phone] Referring Provider: Terell Chang OD F, [address], [place], [address]. tel:[phone] Office Consultation [facility], [address], [place], [place], [id number], tel:[phone] [facility] No Information 8 [facility] Edhector. [address] , [address], [place], [place], [facility], . tel:[phone] Referring Provider: Terell Chang OD F, [address], [place], [address]. tel:[phone] Family History Family Member Type Diagnosis Age At Onset No Information Payers Payer name Insurance type Covered green party ID Authoriza tion(s) No Information Social History Type Description Quantity Date Captured Comments Sex Female Smoking Status No Information Chief Complaint And Reason For Visit No Information Reason For Referral Reason For Referral No Information History Of Present Illness Encounter Date Complaint History Of Prese nt Illness No Information Functional Status Date Functional Assessmen t No Information Instructions Date Instruction Additional Infor mation No Information Assessments Type Assessment Date No Information Patient Care Teams Name Effective Dates (start - stop) Status Members No Information
[2025-07-24 18:26] LABS: Hematocrit 39.9 % (37.0-47.0); Hemoglobin 13.0 g/dL (12.0-15.0); Immature Granulocyte Percent A 0.3 % (0-0.5); Lymphocytes Absolute Auto 2.13 K/mm3 (0.9-3.2); Mean Corpuscular HGB Conc 32.6 g/dl (32-36); Mean Corpuscular Hemoglobin 28.0 pg (26-34); Mean Corpuscular Volume 85.8 fl (80-100); Nucleated Red Blood Cells Absolute Auto 0.000 K/mm3 (0.0-0.012); Nucleated Red Blood Cells Perc 0.0 % (0.0-0.2); Platelet Count Result 221 k/mm3 (150-375); Red Blood Count 4.65 M/mm3 (4.2-5.4); White Blood Count 6.7 K/mm3 (4.5-10.0)
[2025-07-24 19:15] LABS: Ferritin 18.30 ng/mL (11.1-264)
--- OUTSIDE RECORDS SUMMARY | 2025-07-24 19:56 | XMS_ITS | Clinical Summary ---
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
== END 2025-07-24 15:48 | disposition home or self-care (01) ==
LOC: ANHGOSHLAB 15:48
PROVIDERS: PCP Family Medicine; Visit Provider Family Medicine
DX: D64.9 Anemia, unspecified (principal)
CPT/HCPCS: 36415; 82306; 82728; 85025